=== PATIENT | female | born 1950 | race Caucasian/White ===

== ENCOUNTER 2016-10-12 18:53 | Observation (INO) | payer MEDICARE, OTHER ==
[~2016-10-12] VITALS: Ht 160 cm; Wt 115.0 kg
[2016-10-12 18:56] VITALS: BP 170/89; PULSE 18; RESP 15; TEMP 98.4; O2SAT 99
--- NOTE | 2016-10-12 20:14 | RADRPT ---
EXAM DATE/TIME: 10/12/2016 19:55 [facility] COMPARISON: No previous studies available for comparison. INDICATIONS : Chest pain. MEDICAL HISTORY : Hypertension. SURGICAL HISTORY : None. ENCOUNTER: Initial ACUITY: 1 day PAIN SCORE: 6/10 LOCATION: Bilateral chest FINDINGS: The lungs are clear without infiltrate, nodule, or mass. There is no appreciable pleural effusion fo r technique. Heart and mediastinum are unremarkable. CONCLUSION: No acute cardiopulmonary disease. Good Smith MD on October 12, 2016 at 20:12 Board Certified Radiologist. This report was verified electronically.
[2016-10-12] MEDS ORDERED: SIMV40TA PO (20:24)
[2016-10-12] MEDS ORDERED: LOSA100T2 PO (20:24)
[2016-10-12] MEDS ORDERED: MULTTAB67 PO (20:24)
[2016-10-12 20:27] LABS: AUTOMATED NEUTROPHIL # 13.1 TH/MM3 (1.8-7.7); BASOPHIL # 0.1 TH/MM3 (0-0.2); BASOPHIL % 0.6 % (0.0-2.0); EOSINOPHIL # 0.1 TH/MM3 (0-0.4); EOSINOPHIL % 0.7 % (0.0-4.0); HEMATOCRIT 46.1 % (35.0-46.0); LYMPH % 15.3 % (9.0-44.0); LYMPHOCYTE # 2.5 TH/MM3 (1.0-4.8); MEAN CELL VOLUME 83.6 FL (80.0-100.0); MEAN CORPUSCULAR HEMOGLOBIN 27.8 PG (27.0-34.0); MEAN CORPUSCULAR HGB CONC 33.2 % (32.0-36.0); MONO % 3.7 % (0.0-8.0); NEUT % 79.7 % (16.0-70.0); PLATELET COUNT 381 TH/MM3 (150-450); RED BLOOD COUNT 5.51 MIL/MM3 (4.00-5.30); RED CELL DISTRIBUTION WIDTH 14.6 % (11.6-17.2); WHITE BLOOD COUNT 16.5 TH/MM3 (4.0-11.0)
[2016-10-12 20:30] LABS: HEMO FLAGS AUTO DIFF
[2016-10-12 20:34] VITALS: BP 194/98; PULSE 77; RESP 20; O2SAT 98
[2016-10-12 20:43] LABS: ANION GAP 7 MEQ/L (5-15); BICARBONATE 27.5 MEQ/L (21.0-32.0); BLOOD UREA NITROGEN 17 MG/DL (7-18); CHLORIDE 101 MEQ/L (98-107); GLOMERULAR FILTRATION RATE 71 ML/MIN (>89); POTASSIUM 4.1 MEQ/L (3.5-5.1); SODIUM (NA) 135 MEQ/L (136-145)
--- NOTE | 2016-10-12 20:54 | PD ---
HPI . Chest pain Chief Complaint: Chest Pain Time Seen by Provider: 20:39 Travel History International Travel<30 days: No Contact w/Intl Traveler<30days: No Traveled to known affect area: No History of Present Illness HPI This is a 66 year old female with PMH of HTN, Hyperlipidemia, obesity and GERD who presents with 1 day of chest pain. She states the pain began earlier this morning was substernal located in the center of her chest and radiated around her rib cage and down her left arm and into her neck. She said when the pain began it was a 3/10 and increased throughout the day. The pain is currently a 4/10. She described the pain as a "vice strapped around my chest" and could not get comfortable since the pain started. She has never had this pain before. She did not have any associated shortness of breath, diaphoresis, palpitations, nausea, vomiting, or abdominal pain. She has not taken any thing for the pain. She had a nuclear stress test with Dr. Daigle 3 years ago that was negative. She does not drink or smoke. She has a family history of her father with cardiac disease. She has noted no exacerbating or relieving factors. PFSH Past Medical History Medical History: Denies Significant Hx Diminished Hearing: No Immunizations Current: No Tetanus Vaccination: Unknown Influenza Vaccination: No ?: Not Past Surgical History Surgical History: No Previous Surgery Social History Alcohol Use: No Tobacco Use: No Substance Use: No Allergies-Medications (Allergen,Severity, Reaction): Coded Allergies: Penicillins (Verified Allergy, Intermediate, 10/12/16) benzalkonium chloride (Verified Allergy, Intermediate, 10/12/16) lidocaine (Verified Allergy, Intermediate, 10/12/16) pramoxine (Verified Allergy, Intermediate, 10/12/16) Reported Meds & Prescriptions Reported Meds & Active Scripts Active Reported Multiple Vitamin 1 Tab 1 Tab PO DAILY Simvastatin 40 Mg Tab 40 Mg PO HS Losartan-Hydrochlorothiazide 100-25 Mg Tab 1 Tab PO DAILY Review of Systems Except as stated in HPI: all other systems reviewed are Neg General / Constitutional: No: Fever, Chills Eyes: No: Blurred Vision HENT: No: Headaches, Lightheadedness, Rhinorrhea Cardiovascular: Positive: Chest Pain or Discomfort, No: Palpitations, Diaphoresis, Syncope, Dyspnea on exertion Respiratory: No: Cough, Shortness of Breath Gastrointestinal: No: Nausea, Vomiting, Diarrhea, Abdominal Pain, Changes in Bowel Habits Skin: No Rash Neurologic: No: Weakness, Dizziness, Focal Abnormalities Psychiatric: No: Anxiety Physical Exam Narrative GENERAL: This is a pleasant obese female examined sitting in the bed. She was in no acute distress. She was alert and oriented x3. SKIN: Warm and dry. HEAD: Atraumatic. Normocephalic. EYES: Pupils equal and round. Ocular movements intact ENT: No nasal bleeding or discharge. Mucous membranes pink and moist. NECK: Trachea midline. No JVD and no carotid bruits CARDIOVASCULAR: Regular rate and rhythm. No murmurs or extra beats RESPIRATORY: No accessory muscle use. Clear to auscultation bilaterally. No wheezing GASTROINTESTINAL: Abdomen soft, non-tender, nondistended. No epigastric tenderness MUSCULOSKELETAL: No obvious deformities. No edema. NEUROLOGICAL: Awake and alert. No obvious cranial nerve deficits. Motor grossly within normal limits. Normal speech. PSYCHIATRIC: Appropriate mood and affect; insight and judgment normal. Data Data Last Documented VS Vital Signs Date Time Temp Pulse Resp B/P (MAP) Pulse Ox O2 Delivery O2 Flow Rate FiO2 10/12/16 20:34 77 20 194/98 (130) 98 Room Air 10/12/16 18:56 98.4 Orders Orders Electrocardiogram (10/12/16 ) Complete Blood Count With Diff (10/12/16 19:38) Basic Metabolic Panel (Bmp) (10/12/16 19:38) Ckmb (Isoenzyme) Profile (10/12/16 19:38) Troponin I (10/12/16 19:38) Chest, Single Ap (10/12/16 19:38) Iv Access Insert/Monitor (10/12/16 19:38) Aspirin Chew (Aspirin Chew) (10/12/16 21:00) Morphine Inj (Morphine Inj) (10/12/16 21:00) Nitroglycerin 2% Oint (Nitroglycerin 2% (10/12/16 21:00) Ondansetron Inj (Zofran Inj) (10/12/16 21:00) CKMB (10/12/16 20:10) CKMB% (10/12/16 20:10) Labs Laboratory Tests Test 10/12/16 20:10 White Blood Count 16.5 TH/MM3 Red Blood Count 5.51 MIL/MM3 Hemoglobin 15.3 GM/DL Hematocrit 46.1 % Mean Corpuscular Volume 83.6 FL Mean Corpuscular Hemoglobin 27.8 PG Mean Corpuscular Hemoglobin Concent 33.2 % Red Cell Distribution Width 14.6 % Platelet Count 381 TH/MM3 Mean Platelet Volume 7.5 FL Neutrophils (%) (Auto) 79.7 % Lymphocytes (%) (Auto) 15.3 % Monocytes (%) (Auto) 3.7 % Eosinophils (%) (Auto) 0.7 % Basophils (%) (Auto) 0.6 % Neutrophils # (Auto) 13.1 TH/MM3 Lymphocytes # (Auto) 2.5 TH/MM3 Monocytes # (Auto) 0.6 TH/MM3 Eosinophils # (Auto) 0.1 TH/MM3 Basophils # (Auto) 0.1 TH/MM3 CBC Comment AUTO DIFF Differential Comment AUTO DIFF CONFIRMED Platelet Estimate NORMAL Platelet Morphology Comment NORMAL Red Cell Morphology Comment NORMAL Blood Urea Nitrogen 17 MG/DL Creatinine 0.81 MG/DL Random Glucose 109 MG/DL Calcium Level 9.1 MG/DL Sodium Level 135 MEQ/L Potassium Level 4.1 MEQ/L Chloride Level 101 MEQ/L Carbon Dioxide Level 27.5 MEQ/L Anion Gap 7 MEQ/L Estimat Glomerular Filtration Rate 71 ML/MIN Total Creatine Kinase 104 U/L Creatine Kinase MB 2.0 NG/ML Troponin I LESS THAN 0.02 NG/ML MDM Medical Decision Making Medical Screen Exam Complete: Yes Emergency Medical Condition: Yes Differential Diagnosis Differential diagnosis of chest pain includes but is not limited to musculoskeletal pain, pulmonary embolism, acute coronary syndrome, pneumonia, pleurisy Narrative Course This patient presents for evaluation of chest pain. She does have cardiac risk factors. Her workup here is negative. She will be admitted to the chest pain center for further evaluation. Diagnosis Primary Impression: Chest pain Qualified Codes: R07.9 - Chest pain, unspecified Admitting Information Admitting Physician Requests: Observation Condition: Stable Viry Hopson MD Oct 12, 2016 20:54
[2016-10-12] MEDS ORDERED: ASPIRIN 81 MG CHEW TAB PO ONE (21:00)
[2016-10-12] MEDS ORDERED: ONDANSETRON HCL 4 MG/2 ML VIAL IV PUSH ONE (21:00)
[2016-10-12] MEDS ORDERED: MORPHINE SULFATE 4 MG/ML INJ IV PUSH ONE (21:00)
[2016-10-12] MEDS ORDERED: NITROGLYCERIN 2% OINT 1 GM PACKET TOP ONE (21:00)
[2016-10-12 21:01] LABS: CREATINE KINASE 104 U/L (26-192)
[2016-10-12 21:21] LABS: PLATELET ESTIMATE SMEAR NORMAL (NORMAL); PLATELET MORPHOLOGY NORMAL (NORMAL); SCAN/DIFF AUTO DIFF CONFIRMED
[2016-10-12 21:30] VITALS: BP 163/91; PULSE 79; RESP 16; O2SAT 95
--- NOTE | 2016-10-12 21:38 | EKG ---
Date Performed: 10/12/2016 Time Performed: 19:33:01 PTAGE: 66 years EKG: Sinus rhythm MINIMAL ST DEPRESSION BORDERLINE ECG NO PREVIOUS TRACING DOCTOR: Viral Fernandez Interpretating Date/Time 10/12/2016 21:36:38
[2016-10-12] MEDS ORDERED: SODIUM CHLORIDE 0.9% FLUSH 10 ML FLUSH IV FLUSH PRN (21:45)
[2016-10-12] MEDS ORDERED: MORPHINE SULFATE 4 MG/ML INJ IV PRN (21:45)
[2016-10-12] MEDS ORDERED: ONDANSETRON HCL 4 MG/2 ML VIAL IV PRN (21:45)
[2016-10-12] MEDS: SODIUM CHLORIDE 0.9% FLUSH 10 ML FLUSH IV FLUSH SCH ×2 (21:45→23:25)
[2016-10-12 23:00] VITALS: BP 170/79; PULSE 82; RESP 16; O2SAT 91
[2016-10-12 23:05] VITALS: O2SAT 95
[2016-10-13 00:09] LABS: CREATINE KINASE 45 U/L (26-192)
[2016-10-13 00:47] VITALS: BP 147/64; PULSE 78; RESP 16; O2SAT 91
[2016-10-13 02:44] LABS: CREATINE KINASE 65 U/L (26-192)
[2016-10-13 03:54] VITALS: PULSE 84
[2016-10-13 07:07] VITALS: BP 118/58; PULSE 69; RESP 18; TEMP 98.3; O2SAT 97
[2016-10-13] MEDS ORDERED: NITROGLYCERIN 0.4 MG SL 25 TABS/BTL SL PRN (07:30)
[2016-10-13] MEDS ORDERED: ONDANSETRON HCL 4 MG/2 ML VIAL IV PRN (07:30)
[2016-10-13 07:39] VITALS: PULSE 60
--- NOTE | 2016-10-13 07:51 | EKG ---
Date Performed: 10/13/2016 Time Performed: 01:53:11 PTAGE: 66 years EKG: Sinus rhythm NORMAL EKG PREVIOUS TRACING : 10/12/2016 23.36 No significant change from previous tracing noted. DOCTOR: Viral Fernandez Interpretating Date/Time 10/13/2016 07:50:19
--- NOTE | 2016-10-13 08:30 | HHI.HP ---
HPI Primary Care Physician Mary Carmen Jones Jr, MD Chief Complaint Chest pain History of Present Illness 66-year-old female with history of hypertension, hyperlipidemia, and GERD presents to emergency room for further evaluation of chest pain. Onset yesterday evening and 6 PM. Nonexertional. Location substernal. Radiation under left breast and to left shoulder. Described as constant pressure. No associated symptoms of shortness of breath, nausea, vomiting, or diaphoresis. Denies similar pain in the past. No known precipitating factors. Relieving factors include a combination of morphine and Nitropaste. Review of Systems General: No fatigue,weakness, fever, chills, recent illness, or change in appetite. Has been in her general state of health, endorses situation stress helping take care of her . HEENT: No ARIZA, no vision changes, no dysphasia CV: As stated above. No current chest discomfort. RESP: No SOB, cough, wheeze, recent URI or history of asthma I: No nausea, vomiting, bowel changes, diarrhea, constipation, pain, or distention. No unintentional weight gain or weight loss : No dysuria, urgency, frequency, frequent UTIs, or history of kidney stones. EXT: No lower leg edema, no paraesthesias, ambulated independently MS: No discomfort or change in ROM NEURO: No dizziness, difficulty with balance, LOC, motor/sensory deficits PSYCH: Current situation stress. No anxiety or depression. SKIN: Reports current fungal rashes under lower abdominal fold currently using nystatin powder. Past Family Social History Allergies: Coded Allergies: Penicillins (Verified Allergy, Intermediate, 10/12/16) benzalkonium chloride (Verified Allergy, Intermediate, 10/12/16) lidocaine (Verified Allergy, Intermediate, 10/12/16) pramoxine (Verified Allergy, Intermediate, 10/12/16) epinephrine (Verified Allergy, Unknown, 10/13/16) Past Medical History HTN, hyperlipidemia, GERD Past Surgical History Appendectomy Reported Medications Active Reported Multiple Vitamin 1 Tab 1 Tab PO DAILY Simvastatin 40 Mg Tab 40 Mg PO HS Losartan-Hydrochlorothiazide 100-25 Mg Tab 1 Tab PO DAILY Omeprazole 20 mg daily Active Ordered Medications Current Medications Medications (Trade) Dose Ordered Sig/Mike Route Start Time Stop Time Status Last Admin (NS Flush) 2 ml UNSCH PRN IV FLUSH 10/12/16 21:45 (NS Flush) 2 ml BID IV FLUSH 10/12/16 21:45 10/12/16 23:25 (Morphine Inj) 2 mg Q4H PRN IV 10/12/16 21:45 10/13/16 01:01 (Zofran Inj) 4 mg Q6H PRN IV 10/13/16 07:30 (Nitrostat Sl) 0.4 mg Q5M PRN SL 10/13/16 07:30 (Aspirin) 325 mg DAILY PO 10/13/16 09:00 (Tylenol) 650 mg Q4H PRN PO 10/13/16 08:00 Family History Father heart attack in mid 40s or early 50s. Social History Known hypertension and hyperlipidemia. No known diabetes or personal CAD. Quit smoking 1980s. Rare alcohol use. No illegal drug use. Reports sedentary lifestyle. Past Cardiac Testing Nuclear treadmill approx. 3 years ago-reports being completely normal. Never required cardiac catheterization. Physical Exam Vital Signs Vital Signs Date Time Temp Pulse Resp B/P (MAP) Pulse Ox O2 Delivery O2 Flow Rate FiO2 10/13/16 07:07 98.3 69 18 118/58 (78) 97 10/13/16 03:54 84 10/13/16 01:54 10/13/16 00:47 78 16 147/64 (91) 91 Room Air 10/12/16 23:05 95 10/12/16 23:00 82 16 170/79 (109) 91 Room Air 10/12/16 21:30 79 16 163/91 (115) 95 Room Air 10/12/16 20:34 77 20 194/98 (130) 98 Room Air 10/12/16 18:56 98.4 18 15 170/89 (116) 99 Physical Exam GENERAL: Alert WN, WD, NAD, pleasant, obese, female HEAD: NC, AT EYES: Sclera clear, conjunctiva without injection, pupils equal and round ENT: Mucous membranes pink and moist CV: RRR, without murmur, rub, gallop, no JVD, S1-S2 no S3-S4. No carotid bruits. RESP: Clear lungs throughout bilateral, no crackles, wheeze, rhonchi, symmetrical chest rise, nonlabored, able to speak in full sentences ABD: Soft, NT, ND, no masses, positive bowel tones, obese EXT: Pulses +24, no dependent edema MS: Normal tone 4 extremities, chest wall tenderness easily reproduced, no obvious deformities, full range of motion NEURO: CN II through CN XII grossly intact, motor strength 5/5, gait WNL PSYCH: A+O 3, pleasant affect, appropriate speech, appropriate mood and affect , insight and judgment SKIN: Normal turgor, normal texture, no lesions, no rashes, brisk cap refill Laboratory Laboratory Tests Test 10/12/16 20:10 10/12/16 23:30 10/13/16 02:00 White Blood Count 16.5 Red Blood Count 5.51 Hemoglobin 15.3 Hematocrit 46.1 Mean Corpuscular Volume 83.6 Mean Corpuscular Hemoglobin 27.8 Mean Corpuscular Hemoglobin Concent 33.2 Red Cell Distribution Width 14.6 Platelet Count 381 Mean Platelet Volume 7.5 Neutrophils (%) (Auto) 79.7 Lymphocytes (%) (Auto) 15.3 Monocytes (%) (Auto) 3.7 Eosinophils (%) (Auto) 0.7 Basophils (%) (Auto) 0.6 Neutrophils # (Auto) 13.1 Lymphocytes # (Auto) 2.5 Monocytes # (Auto) 0.6 Eosinophils # (Auto) 0.1 Basophils # (Auto) 0.1 CBC Comment AUTO DIFF Differential Comment AUTO DIFF CONFIRMED Platelet Estimate NORMAL Platelet Morphology Comment NORMAL Red Cell Morphology Comment NORMAL Blood Urea Nitrogen 17 Creatinine 0.81 Random Glucose 109 Calcium Level 9.1 Sodium Level 135 Potassium Level 4.1 Chloride Level 101 Carbon Dioxide Level 27.5 Anion Gap 7 Estimat Glomerular Filtration Rate 71 Total Creatine Kinase 104 45 65 Creatine Kinase MB 2.0 Troponin I LESS THAN 0.02 LESS THAN 0.02 LESS THAN 0.02 Result Diagram: 10/12/16200910/12/162009 Course EKG NSR, normal axis, minimal st depression V3-V6 Caprini VTE Risk Assessment Caprini VTE Risk Assessment: No/Low Risk (score <= 1) Caprini Risk Assessment Model Point Value = 1 Point Value = 2 Point Value = 3 Point Value = 5 Age 41-60 Minor surgery BMI > 25 kg/m2 Swollen legs Varicose veins or History of unexplained or recurrent spontaneous Oral contraceptives or hormone replacement Sepsis (< 1 month) Serious lung disease, including pneumonia (< 1 month) Abnormal pulmonary function Acute myocardial infarction Congestive heart failure (< 1 month) History of inflammatory bowel disease Medical patient at bed rest Age 61-74 Arthroscopic surgery Major open surgery (> 45 min) Laparoscopic surgery (> 45 min) Malignancy Confined to bed (> 72 hours) Immobilizing plaster cast Central venous access Age >= 75 History of VTE Family history of VTE Factor V Leiden Prothrombin [id number] Lupus anticoagulant Anticardiolipin antibodies Elevated serum homocysteine Heparin-induced thrombocytopenia Other congenital or acquired thrombophilia Stroke (< 1 month) Elective arthroplasty Hip, pelvis, or leg fracture Acute spinal cord injury (< 1 month) Prophylaxis Regimen Total Risk Factor Score Risk Level Prophylaxis Regimen 0-1 Low Early ambulation 2 Moderate Order ONE of the following: *Sequential Compression Device (SCD) *Heparin 5000 units SQ BID 3-4 Higher Order ONE of the following medications: *Heparin 5000 units SQ TID *Enoxaparin/Lovenox 40 mg SQ daily (WT < 150 kg, CrCl > 30 mL/min) *Enoxaparin/Lovenox 30 mg SQ daily (WT < 150 kg, CrCl > 10-29 mL/min) *Enoxaparin/Lovenox 30 mg SQ BID (WT < 150 kg, CrCl > 30 mL/min) AND/OR *Sequential Compression Device (SCD) 5 or more Highest Order ONE of the following medications: *Heparin 5000 units SQ TID (Preferred with Epidurals) *Enoxaparin/Lovenox 40 mg SQ daily (WT < 150 kg, CrCl > 30 mL/min) *Enoxaparin/Lovenox 30 mg SQ daily (WT < 150 kg, CrCl > 10-29 mL/min) *Enoxaparin/Lovenox 30 mg SQ BID (WT < 150 kg, CrCl > 30 mL/min) AND *Sequential Compression Device (SCD) Assessment and Plan Assessment and Plan #1 Atypical chest pain-admitted to chest pain center. Ruled out with 3 EKGs, cardiac enzymes, and monitored overnight. Seen and evaluated by Dr. Yonis Mccabe. Proceed with nuclear treadmill this morning. If unremarkable, will discharged this afternoon. #2 Hypertension-continue home medication and continue to monitor #3 Hyperlipidemia-continue simvastatin #4 GERD-Protonix 40 mg daily Encouraged to increase daily activity as able and following a low sodium, low fat diet. Further disposition to follow results of nuclear scan. 14:10-Nuclear stress test small areas of redistribution. Dr. Mccabe also reviewed exam. Consult douper on-call. Patient made aware on consult. Nitro paste 0.5" Q6H and Lopressor 12.5 BID ordered. Discussed with nurse. Esperanza Curtis Oct 13, 2016 08:30
[2016-10-13] MEDS ORDERED: LOSARTAN 50 MG TAB PO SCH (09:00)
[2016-10-13] MEDS ORDERED: MULTIVITAMIN TAB PO SCH (09:00)
[2016-10-13] MEDS ORDERED: ASPIRIN 325 MG TAB PO SCH (09:00)
[2016-10-13] MEDS: ACETAMINOPHEN 325 MG TAB PO PRN ×2 (09:06→15:34)
[2016-10-13] MEDS ORDERED: PANTOPRAZOLE SOD 40 MG DELAYED RELEASE TAB PO SCH (10:00)
[2016-10-13] MEDS ORDERED: HYDROCHLOROTHIAZIDE 25 MG TAB PO SCH (10:00)
[2016-10-13 13:21] VITALS: BP 147/72; PULSE 86; RESP 18; TEMP 98.5
--- NOTE | 2016-10-13 13:41 | RADRPT ---
EXAM DATE/TIME: 10/13/2016 11:18 [facility] COMPARISON: No previous studies available for comparison. INDICATIONS : Chest pain for 1 day. Angina DOSE: 35 mCi Tc99m Myoview at stress 8.5 mCi Tc99m Myoview at rest REST HEART RATE: 78 BPM TARGET HEART RATE: 132 BPM MAX HEART RATE: 139 BPM REST BLOOD PRESSURE: 132/72 mmHg MAX BLOOD PRESSURE: 148/70 mmHg EJECTION FRACTION: 67% MEDICAL HISTORY : Hypertension. SURGICAL HISTORY : None. ENCOUNTER: Initial ACUITY: 1 day PAIN SCALE: 4/10 LOCATION: Left chest TECHNIQUE: The patient underwent upright treadmill exercise in the chest pain center. Continuous ECG tracing wa s monitored during stress. Gated SPECT imaging was performed after stress, and conventional SPECT im aging was performed at rest. The examination was performed on a SPECT/CT scanner, both attenuation-c orrected and non-corrected datasets were reviewed. FINDINGS: DISTRIBUTION: The maximum perfused segment at stress is in the anterolateral wall. PERFUSION STUDY: The pattern of perfusion at stress shows a least 20 percent redistribution in segments of the septal and inferior shukla. GATED STUDY: There is intact wall motion and thickening without hypokinetic or dyskinetic segments. CONCLUSION: 1. Scintigraphic findings concerning for small areas of ischemia in the septal and inferior shukla. 2. Adequate wall motion throughout with estimated ejection fraction of 67%. RISK CATEGORY: Intermediate (1-3% Annual Mortality Rate) Jared Brantley MD on October 13, 2016 at 13:35 Board Certified Radiologist. This report was verified electronically.
--- NOTE | 2016-10-13 13:46 | TR ---
Date Performed: 10/13/2016 Time Performed: 12:16:53 DOCTOR: Yonis Mccabe DRUG LIST: CLINICAL HISTORY: CHEST PAIN REASON FOR TEST: REASON FOR ENDING: OBSERVATION: CONCLUSION: Luis Fernando protocol performed test stopped secondary to target heart rate reached seconda ry to leg fatigue. No reprocducible chest discomfort. No ST segment changes to indicate ischemia. Goo d exercise tolerance. Recovery quick and unremarkable. Maximum FX=106 Target HR Achieved=90.0% Maximu m JG=488/72 Total Exercise Time=4:18. Nuclear imaging pending. COMMENTS: Conclusion: Normal treadmill exercise. No evidence of ischemia. Radionuclide was inje cted one minute prior to ending test. Nuclear imaging and interpretation are pending.
[2016-10-13] MEDS: NITROGLYCERIN 2% OINT 1 GM PACKET TOPICAL SCH ×3 (14:00→18:00)
[2016-10-13] MEDS ORDERED: METOPROLOL TARTRATE 25 MG TAB PO SCH (14:05)
--- NOTE | 2016-10-13 15:08 | PD.CONS ---
HPI Service CV Consult Requested By Reason for Consult chest pain Primary Care Physician Mary Carmen Jones Jr, MD History of Present Illness Here with hypertension, hyperlipidemia, and GERD admitted with chest pain She states that yesterday evening, at rest, began having retrosternal chest pressure. It did not radiate. There were no associated symptoms. She had eaten fried food prior this and does have gallbladder problems. She has a 10 PYH smoking, she quit in 1979. Here father had AMI age 50. Denies similar pain in the past. Relieving factors include a combination of morphine and Nitropaste. She had a negative nuclear stress test 3 years ago (Jack Owens) Consult Requested By guideline directed medical therapy note dictated (Misael Shen MD) Review of Systems Consitutional: DENIES: Fatigue, Fever, Chills, Weight gain, Weight loss Eyes: DENIES: Amaurosis Fugax, Change in vision HEENT: DENIES: Lightheadedness, Change in hearing Respiratory: DENIES: See HPI, Cough, Snoring, Shortness of breath, Wheezing, Sputum production Cardiovascular: COMPLAINS OF: See HPI Gastrointestinal: DENIES: Nausea, Vomiting, Change in bowel habits, Reflux, Bloody stools, Melena Genitourinary: DENIES: Urinary incontinence, Difficulty voiding Integumentary: DENIES: Rash Neurologic: DENIES: Tingling or numbness, Memory problems, Poor Balance, Stroke symptoms Musculoskeletal: DENIES: Joint pain, Muscle pain, Limited range of motion, Back pain Psychiatric: DENIES: Anxiety, Depression, Sleep disturbances Hematologic: DENIES: Bruising tendencies, Bleeding tendencies Endocrine: DENIES: Weight gain, Weight loss, Thyroid disease (Jack Owens ) Past Family Social History Allergies: Coded Allergies: Penicillins (Verified Allergy, Intermediate, 10/12/16) benzalkonium chloride (Verified Allergy, Intermediate, 10/12/16) lidocaine (Verified Allergy, Intermediate, 10/12/16) pramoxine (Verified Allergy, Intermediate, 10/12/16) epinephrine (Verified Allergy, Unknown, 10/13/16) Past Medical History see HPI Past Surgical History multiple gynecological surgeries appendectomy Reported Medications Reported Meds & Active Scripts Active Reported Multiple Vitamin 1 Tab 1 Tab PO DAILY Simvastatin 40 Mg Tab 40 Mg PO HS Losartan-Hydrochlorothiazide 100-25 Mg Tab 1 Tab PO DAILY Active Ordered Medications Current Medications Medications (Trade) Dose Ordered Sig/Mike Route Start Time Stop Time Status Last Admin (NS Flush) 2 ml UNSCH PRN IV FLUSH 10/12/16 21:45 (NS Flush) 2 ml BID IV FLUSH 10/12/16 21:45 10/12/16 23:25 (Morphine Inj) 2 mg Q4H PRN IV 10/12/16 21:45 10/13/16 01:01 (Zofran Inj) 4 mg Q6H PRN IV 10/13/16 07:30 (Nitrostat Sl) 0.4 mg Q5M PRN SL 10/13/16 07:30 (Aspirin) 325 mg DAILY PO 10/13/16 09:00 10/13/16 09:06 (Tylenol) 650 mg Q4H PRN PO 10/13/16 08:00 10/13/16 09:06 (Cozaar) 100 mg DAILY PO 10/13/16 09:00 (Theragran) 1 tab DAILY PO 10/13/16 09:00 (Pravachol) 80 mg HS PO 10/13/16 21:00 (Protonix) 40 mg DAILY PO 10/13/16 10:00 (Hydrodiuril) 25 mg DAILY PO 10/13/16 10:00 (Nitroglycerin 2% Oint) 0.5 inch Q6HR TOPICAL 10/13/16 14:00 (Lopressor) 12.5 mg Q12HR PO 10/13/16 14:05 (Jack Owens) Physical Exam Vital Signs Vital Signs Date Time Temp Pulse Resp B/P (MAP) Pulse Ox O2 Delivery O2 Flow Rate FiO2 10/13/16 13:21 98.5 86 18 147/72 (97) 10/13/16 08:37 21 10/13/16 07:07 98.3 69 18 118/58 (78) 97 10/13/16 03:54 84 10/13/16 01:54 10/13/16 00:47 78 16 147/64 (91) 91 Room Air 10/12/16 23:05 95 10/12/16 23:00 82 16 170/79 (109) 91 Room Air 10/12/16 21:30 79 16 163/91 (115) 95 Room Air 10/12/16 20:34 77 20 194/98 (130) 98 Room Air 10/12/16 18:56 98.4 18 15 170/89 (116) 99 Physical Exam GENERAL: Well-nourished, well-developed patient in no apparent distress. NECK: No JVD. No carotid bruit. CARDIOVASCULAR: Regular rate and rhythm. S1/S2 no murmur, rub, or gallop. RESPIRATORY: No accessory muscle use. Clear to auscultation. Breath sounds equal bilaterally. GASTROINTESTINAL: Abdomen soft, non-tender, nondistended. MUSCULOSKELETAL: Extremities without clubbing, cyanosis, or edema. Laboratory Laboratory Tests Test 10/12/16 20:10 10/12/16 23:30 10/13/16 02:00 White Blood Count 16.5 Red Blood Count 5.51 Hemoglobin 15.3 Hematocrit 46.1 Mean Corpuscular Volume 83.6 Mean Corpuscular Hemoglobin 27.8 Mean Corpuscular Hemoglobin Concent 33.2 Red Cell Distribution Width 14.6 Platelet Count 381 Mean Platelet Volume 7.5 Neutrophils (%) (Auto) 79.7 Lymphocytes (%) (Auto) 15.3 Monocytes (%) (Auto) 3.7 Eosinophils (%) (Auto) 0.7 Basophils (%) (Auto) 0.6 Neutrophils # (Auto) 13.1 Lymphocytes # (Auto) 2.5 Monocytes # (Auto) 0.6 Eosinophils # (Auto) 0.1 Basophils # (Auto) 0.1 CBC Comment AUTO DIFF Differential Comment AUTO DIFF CONFIRMED Platelet Estimate NORMAL Platelet Morphology Comment NORMAL Red Cell Morphology Comment NORMAL Blood Urea Nitrogen 17 Creatinine 0.81 Random Glucose 109 Calcium Level 9.1 Sodium Level 135 Potassium Level 4.1 Chloride Level 101 Carbon Dioxide Level 27.5 Anion Gap 7 Estimat Glomerular Filtration Rate 71 Total Creatine Kinase 104 45 65 Creatine Kinase MB 2.0 Troponin I LESS THAN 0.02 LESS THAN 0.02 LESS THAN 0.02 Lipase 98 (Jack Owens) Result Diagram: 10/12/16200910/12/162009 Assessment and Plan Problem List: (1) Chest pain ICD Codes: R07.9 - Chest pain, unspecified Status: Acute (2) Abnormal stress test ICD Codes: R94.39 - Abnormal result of other cardiovascular function study Assessment and Plan So far cardiac workup shows negative troponin x 3 and small areas of ischemia on SPECT. Her symptoms are somewhat atypical, yet with her risk factors consider guideline based medical therapy vs invasive strategy. (Jack Owens) Problem Qualifiers (1) Chest pain: Qualified Codes: R07.9 - Chest pain, unspecified Jack Owens Oct 13, 2016 15:08 Misael Shen MD Oct 13, 2016 15:40
--- NOTE | 2016-10-13 15:11 | EKG ---
Date Performed: 10/12/2016 Time Performed: 23:36:34 PTAGE: 66 years EKG: Sinus rhythm MINIMAL ST DEPRESSION BORDERLINE ECG PREVIOUS TRACING : 10/12/2016 19.33 Since previous tracing, no significant change noted DOCTOR: Yonis Mccabe Interpretating Date/Time 10/13/2016 15:10:08
--- NOTE | 2016-10-13 16:00 | MB ---
cc: PEDRO LUO DATE OF CONSULTATION 10/13/2016 INDICATION Chest pain. HISTORY OF PRESENT ILLNESS A 66-year-old female. She does have a history hypertension, hyperlipidemia. She presented to the emergency department with some chest pain. She describes it as a substernal nonexertional pressure under her left breast, radiating towards her shoulder. It is sort of constant and lasted for several hours, not associated with shortness of breath, nausea, vomiting, diaphoresis. She did receive some morphine in addition to nitro paste and the chest pain had resolved. Electrocardiogram was unremarkable. Troponins were negative x 3. She underwent a stress testing and was able to go 4 minutes with exercise without any symptoms or EKG changes. She did have a small perfusion defect noted and the stress test was mentioned with intermediate risk. We are consulted for consideration of medical therapy versus heart cath. PAST MEDICAL HISTORY 1. Hypertension. 2. Hyperlipidemia. 3. Gastroesophageal reflux disease. REPORTED MEDICATIONS 1. Lovastatin. 2. Losartan. 3. Hydrochlorothiazide. 4. Omeprazole. ALLERGIES PENICILLIN. LIDOCAINE. EPINEPHRINE. PRAMOXINE. SOCIAL HISTORY Denies alcohol, tobacco or drug use. FAMILY HISTORY Denies any family history of early coronary artery disease or sudden cardiac . REVIEW OF SYSTEMS A 12-point review of some was performed. Negative unless otherwise noted in the History of Present Illness. PHYSICAL EXAMINATION VITAL SIGNS: Temperature is 98, pulse 86, blood pressure was 147/72 mmHg. GENERAL: Alert and oriented x 3, in no acute distress. HEENT: Exam shows pupils reactive to light and accommodation. Extraocular muscles intact. NECK: No elevation in jugular venous distention. No thyromegal, no lymphadenopathy, no carotid bruits. LUNGS: Clear to auscultation bilaterally. CARDIOVASCULAR EXAM: Regular rate rhythm without murmurs, rubs or gallops. ABDOMEN EXAM: Nontender, nondistended. Good bowel sounds. No hepatosplenomegaly. EXTREMITIES: No clubbing, cyanosis or edema. Good peripheral pulses. CRANIAL NERVES: Intact. Motor and sensory are grossly intact. LABORATORY DATA Sodium 135, potassium 4.1, BUN is 17, creatinine 0.81, troponins negative x 3. WBC is 16.5, hemoglobin is 15.3, platelet count is 381. ELECTROCARDIOGRAM Sinus rhythm. ASSESSMENT 1. Chest pain, atypical. 2. Hypertension. 3. Hyperlipidemia. PLAN Symptoms were nonexertional, somewhat atypical in presentation. She does have several cardiovascular risk factors. Her troponin was negative and electrocardiogram was unremarkable. Her stress test was mention to have a small perfusion abnormality, but then mentions greater than 20% redistribution consistent with an intermediate risk study. I reviewed the nuclear perfusion imaging myself. It does look like there is a small territory in the inferolateral wall ischemia. This may actually be soft tissue attenuation. According to appropriately use criteria, this would not be a strong indication to proceed forward with cardiac catheterization. I would like to proceed with a more conservative approach and the patient is agreeable to do so. We will initiate a beta elida, watch her blood pressure and heart rate. I have asked her to watch what she eats as I think this probably exacerbated her symptoms. If she has further recurrence of symptoms, we can always schedule a stress test on an outpatient basis if necessary. MD FLORENCIO Hollingsworth/SSB /3:36 PM /3:46 PM
[2016-10-13] MEDS ORDERED: METO25TA3 PO (16:19)
--- NOTE | 2016-10-13 16:19 | HHI.DCPOC ---
Discharge Care Plan Diagnosis: (1) Atypical chest pain (2) Hypertension Goals to Promote Your Health * To prevent worsening of your condition and complications * To maintain your health at the optimal level Directions to Meet Your Goals Take your medications as prescribed Follow your dietary instruction Follow activity as directed Keep your appointments as scheduled Take your immunizations and boosters as scheduled If your symptoms worsen call your PCP, if no PCP go to Urgent Care Center or Emergency Room Smoking is Dangerous to Your Health. Avoid second hand smoke Call the 24-hour hour crisis hotline for domestic abuse at [facility] Curtis Oct 13, 2016 16:19
[2016-10-13] MEDS ORDERED: PRAVASTATIN SOD 80 MG TAB PO SCH (21:00)
== END 2016-10-13 22:03 | disposition home or self-care (01) ==
LOC: NEPC 18:53 → NEDA 21:38 → NEPGCP 10-13 01:59
DX: R07.89 Other chest pain (principal); I11.0 Hypertensive heart disease with heart failure; E78.5 Hyperlipidemia, unspecified; K21.9 Gastro-esophageal reflux disease without esophagitis; R94.39 Abnormal result of other cardiovascular function study; E66.9 Obesity, unspecified; Z68.41 Body mass index [BMI] 40.0-44.9, adult; Z79.899 Other long term (current) drug therapy; Z87.891 Personal history of nicotine dependence
CPT/HCPCS: 71010; 78452; 80048; 82550; 82552; 83690; 84484; 85025; 93005; 93017; 96374; 96375; 99285; A9502; G0378; J2270; J2405